=== PATIENT | male | born 1945 | race Caucasian/White ===

== ENCOUNTER 2021-10-02 10:40 | Inpatient (IN) | payer MEDICARE ==
[2021-10-02 11:45] LABS: #Eosinphils 0.2 10x3/uL (0.0-0.5); #Monocytes 1.3 10x3/uL (0.0-1.1); #Neutrophils 6.3 10x3/uL (1.5-8.4); %Basophils 0.4 % (0.0-2.0); %Eosinophils 2.3 % (0.0-6.0); %Lymphocytes 13.6 % (18.0-47.0); %Monocytes 14.2 % (0.0-10.0); Hemoglobin 12.3 g/dL (13.5-17.5); Mean Corpuscular Volume 96.7 fl (81.2-95.1); Mean Platelet Volume 10.1 fl (7.4-10.4); Platelet Count 233 10x3/uL (150-450); RBC Distribution Width 14.5 % (11.5-14.5); Red Blood Cell (RBC) Count 3.97 10x6/uL (4.32-5.72); White Blood Cell (WBC) Count 9.2 10x3/uL (3.5-10.5)
[2021-10-02 11:54] LABS: ALT (SGPT) 43 U/L (8-55); AST (SGOT) 48 U/L (5-34); Albumin 2.8 g/dL (3.4-4.8); Alkaline Phosphatase 75 U/L (40-110); Anion Gap 16 mmol/L (10-20); BUN (Urea Nitrogen) 73 mg/dL (8.4-25.7); Bilirubin, Total 1.2 mg/dL (0.2-1.2); Calc. Creatinine Clearance 0 mL/min (70-130); Calcium 8.8 mg/dL (7.8-10.44); Carbon Dioxide 20 mmol/L (23-31); Chloride 113 mmol/L (98-107); Globulin 3.1 g/dL (2.4-3.5); Glucose 110 mg/dL (83-110); Potassium 5.4 mmol/L (3.5-5.1); Protein, Total 5.9 g/dL (5.8-8.1); Sodium 144 mmol/L (136-145)
[2021-10-02 14:15] LABS: SARS-CoV-2 NAA Rapid Test Not Detected (NotDetected)
[2021-10-02] MEDS ORDERED: Acetaminophen 325 MG TAB PO PRN (15:05)
[2021-10-02 15:49] LABS: Potassium 5.2 mmol/L (3.5-5.1)
[2021-10-02 16:34] VITALS: BMI 38.7
[2021-10-02] MEDS ORDERED: Sodium Chloride 0.9% 500 ML IV SCH (17:30)
[2021-10-02 17:35] LABS: Bilirubin Neg (Negative); Blood, Urine Negative (Negative); Clarity Clear (Clear); Glucose, Urine (Dipstick) Normal (Negative); Ketone, Urine Negative (Negative); Leukocyte Negative (Negative); Nitrite Negative (Negative); Protein, Urine (Dipstick) Negative (Neg-Trace); Specific Gravity, Urine 1.015 (1.002-1.036); Urobilinogen Normal mg/dL (Less than 2)
[2021-10-02 17:49] LABS: Bacteria/HPF 1+ HPF (None Seen); Creatinine, Urine 167.28 mg/dL (63-166); RBC/HPF 0-3 HPF (0-3); Squamous Epithelial None Seen HPF (0-3); WBC/HPF 0-3 HPF (0-3)
[2021-10-02 18:31] LABS: Anion Gap 18 mmol/L (10-20); BUN (Urea Nitrogen) 76 mg/dL (8.4-25.7); Calc. Creatinine Clearance 35 mL/min (70-130); Calcium 8.8 mg/dL (7.8-10.44); Carbon Dioxide 19 mmol/L (23-31); Chloride 112 mmol/L (98-107); Glucose 126 mg/dL (83-110); Potassium 5.5 mmol/L (3.5-5.1); Sodium 143 mmol/L (136-145)
[2021-10-02] MEDS: Albumin 25% 25 GM/100 ML BOT IVPB SCH (20:59)
[2021-10-02] MEDS: LOKELMA 10 GM PACKET PO SCH (20:59)
[2021-10-02] MEDS: Fish Oil 1,000 MG CAP PO SCH (21:01)
[2021-10-02] MEDS: Atorvastatin Calcium 10 MG TAB PO SCH (21:01)
[2021-10-02] MEDS: Multivit, Therapeutic 1 TAB PO SCH (21:01)
[2021-10-02 21:15] LABS: Potassium 5.6 mmol/L (3.5-5.1)
[2021-10-03] MEDS: Albumin 25% 25 GM/100 ML BOT IVPB SCH ×3 (00:14→10:01)
[2021-10-03 00:46] LABS: Potassium 5.2 mmol/L (3.5-5.1)
[2021-10-03 07:20] LABS: #Eosinphils 0.2 10x3/uL (0.0-0.5); #Neutrophils 4.2 10x3/uL (1.5-8.4); %Basophils 0.6 % (0.0-2.0); %Eosinophils 3.3 % (0.0-6.0); %Lymphocytes 17.2 % (18.0-47.0); %Neutrophils 63.6 % (40.0-75.0); Hemoglobin 10.9 g/dL (13.5-17.5); Mean Corpuscular HGB CONC 33.1 g/dL (32.0-36.0); Mean Corpuscular Hemoglobin 31.4 pg (27.0-33.0); Mean Corpuscular Volume 94.8 fl (81.2-95.1); Mean Platelet Volume 10.1 fl (7.4-10.4); Platelet Count 166 10x3/uL (150-450); RBC Distribution Width 14.6 % (11.5-14.5); Red Blood Cell (RBC) Count 3.47 10x6/uL (4.32-5.72); White Blood Cell (WBC) Count 6.6 10x3/uL (3.5-10.5)
[2021-10-03 07:48] LABS: Anion Gap 13 mmol/L (10-20); BUN (Urea Nitrogen) 72 mg/dL (8.4-25.7); Calc. Creatinine Clearance 42 mL/min (70-130); Calcium 8.5 mg/dL (7.8-10.44); Carbon Dioxide 21 mmol/L (23-31); Chloride 114 mmol/L (98-107); Glucose 91 mg/dL (83-110); Sodium 143 mmol/L (136-145)
[2021-10-03 09:22] LABS: INR-International Normal Ratio 1.3; Prothrombin Time 14.1 sec (9.5-12.1)
[2021-10-03] MEDS ORDERED: Enoxaparin Sodium 30 MG/0.3 ML SYRINGE ONE (09:44)
[2021-10-03] MEDS ORDERED: Albumin 25% 100 ML ONE (09:46)
[2021-10-03] MEDS: Lisinopril 20 MG TAB PO SCH (10:02)
[2021-10-03] MEDS: Ferrous Gluconate 324 MG TAB PO SCH (10:02)
[2021-10-03] MEDS: Ascorbic Acid 500 mg Chewable Tablet PO SCH (10:02)
[2021-10-03] MEDS: Amlodipine 10 MG TAB PO SCH (10:02)
[2021-10-03] MEDS: Enoxaparin Sodium 30 MG/0.3 ML SYRINGE SC SCH (10:03)
[2021-10-03] MEDS: Fluticasone Propionate Nasal Spray 16 gm Bottle NASAL SCH (10:04)
[2021-10-03] MEDS: LOKELMA 10 GM PACKET PO SCH ×3 (10:07→21:18)
[2021-10-03 14:33] LABS: Potassium 4.5 mmol/L (3.5-5.1)
[2021-10-03] MEDS: Mometasone Furoate 220 MCG AER IH SCH (19:33)
[2021-10-03] MEDS: Atorvastatin Calcium 10 MG TAB PO SCH (21:18)
[2021-10-03] MEDS: Multivit, Therapeutic 1 TAB PO SCH (21:18)
[2021-10-03] MEDS: Fish Oil 1,000 MG CAP PO SCH (21:18)
[2021-10-04 04:39] LABS: Anion Gap 16 mmol/L (10-20); BUN (Urea Nitrogen) 62 mg/dL (8.4-25.7); Calc. Creatinine Clearance 51 mL/min (70-130); Calcium 8.5 mg/dL (7.8-10.44); Carbon Dioxide 18 mmol/L (23-31); Chloride 114 mmol/L (98-107); Glucose 90 mg/dL (83-110); Potassium 4.4 mmol/L (3.5-5.1); Sodium 144 mmol/L (136-145)
[2021-10-04 04:48] LABS: #Eosinphils 0.2 10x3/uL (0.0-0.5); #Neutrophils 4.4 10x3/uL (1.5-8.4); %Basophils 0.4 % (0.0-2.0); %Eosinophils 3.1 % (0.0-6.0); %Lymphocytes 18.1 % (18.0-47.0); %Monocytes 14.6 % (0.0-10.0); %Neutrophils 63.7 % (40.0-75.0); Hemoglobin 11.5 g/dL (13.5-17.5); Mean Corpuscular HGB CONC 33.3 g/dL (32.0-36.0); Mean Corpuscular Hemoglobin 31.6 pg (27.0-33.0); Mean Corpuscular Volume 94.8 fl (81.2-95.1); Mean Platelet Volume 10.4 fl (7.4-10.4); Platelet Count 173 10x3/uL (150-450); RBC Distribution Width 14.4 % (11.5-14.5); Red Blood Cell (RBC) Count 3.64 10x6/uL (4.32-5.72); White Blood Cell (WBC) Count 6.8 10x3/uL (3.5-10.5)
[2021-10-04] MEDS: Ascorbic Acid 500 mg Chewable Tablet PO SCH (08:29)
[2021-10-04] MEDS: Ferrous Gluconate 324 MG TAB PO SCH (08:29)
[2021-10-04] MEDS: Enoxaparin Sodium 30 MG/0.3 ML SYRINGE SC SCH (08:29)
[2021-10-04] MEDS: LOKELMA 10 GM PACKET PO SCH ×2 (08:30→15:30)
[2021-10-04] MEDS: Lisinopril 20 MG TAB PO SCH (08:30)
[2021-10-04] MEDS: Amlodipine 10 MG TAB PO SCH (08:30)
[2021-10-04] MEDS: Fluticasone Propionate Nasal Spray 16 gm Bottle NASAL SCH (08:33)
[2021-10-04] MEDS ORDERED: Octreotide Acetate 100 MCG/ML VIAL SLOW IVP SCH (10:00)
[2021-10-04] MEDS: Octreotide Acetate 50 MCG/ML AMP SLOW IVP SCH ×2 (10:33→18:20)
[2021-10-04] MEDS: Ondansetron ODT 4 MG TAB PO PRN (10:33)
[2021-10-04] MEDS ORDERED: Lidocaine 1% PF 5 ML VIAL ONE (11:48)
[2021-10-04] MEDS ORDERED: Sodium Bicarbonate 2.5 MEQ/5 ML VIAL ONE (11:49)
[2021-10-04] MEDS ORDERED: Albumin 25% 100 ML ONE (12:23)
[2021-10-04 13:30] LABS: BF Color Yellow; Body Fluid Source Ascites Body Fluid; Clarity Cloudy/Turbid (Clear); Tube # EDTA
[2021-10-04 14:26] LABS: BF Segmented Neutrophils 21 %; Cell Count Non Hematic 19 %; Lymphocytes 60 %
[2021-10-04] MEDS: Albumin 25% 25 GM/100 ML BOT IVPB SCH ×2 (14:26→20:50)
[2021-10-04] MEDS: Mometasone Furoate 220 MCG AER IH SCH (19:12)
[2021-10-04] MEDS: Multivit, Therapeutic 1 TAB PO SCH (20:50)
[2021-10-04] MEDS: Atorvastatin Calcium 10 MG TAB PO SCH (20:50)
[2021-10-04] MEDS: Fish Oil 1,000 MG CAP PO SCH (20:51)
[2021-10-05] MEDS: Ondansetron ODT 4 MG TAB PO PRN ×2 (00:39→09:42)
[2021-10-05] MEDS: Octreotide Acetate 50 MCG/ML AMP SLOW IVP SCH (01:28)
[2021-10-05] MEDS: Albumin 25% 25 GM/100 ML BOT IVPB SCH ×2 (02:15→09:16)
[2021-10-05 04:02] LABS: #Eosinphils 0.1 10x3/uL (0.0-0.5); #Monocytes 0.9 10x3/uL (0.0-1.1); #Neutrophils 6.7 10x3/uL (1.5-8.4); %Basophils 0.2 % (0.0-2.0); %Eosinophils 0.8 % (0.0-6.0); %Lymphocytes 11.4 % (18.0-47.0); %Monocytes 9.9 % (0.0-10.0); %Neutrophils 77.4 % (40.0-75.0); Hemoglobin 11.1 g/dL (13.5-17.5); Mean Corpuscular HGB CONC 32.6 g/dL (32.0-36.0); Mean Corpuscular Hemoglobin 31.1 pg (27.0-33.0); Mean Corpuscular Volume 95.2 fl (81.2-95.1); Mean Platelet Volume 10.2 fl (7.4-10.4); Platelet Count 150 10x3/uL (150-450); RBC Distribution Width 14.5 % (11.5-14.5); Red Blood Cell (RBC) Count 3.57 10x6/uL (4.32-5.72); White Blood Cell (WBC) Count 8.7 10x3/uL (3.5-10.5)
[2021-10-05 04:21] LABS: Anion Gap 14 mmol/L (10-20); BUN (Urea Nitrogen) 60 mg/dL (8.4-25.7); Calc. Creatinine Clearance 53 mL/min (70-130); Calcium 8.6 mg/dL (7.8-10.44); Carbon Dioxide 22 mmol/L (23-31); Chloride 115 mmol/L (98-107); Glucose 146 mg/dL (83-110); Potassium 5.2 mmol/L (3.5-5.1); Sodium 146 mmol/L (136-145)
[2021-10-05] MEDS: Ascorbic Acid 500 mg Chewable Tablet PO SCH (09:16)
[2021-10-05] MEDS: Ferrous Gluconate 324 MG TAB PO SCH (09:16)
[2021-10-05] MEDS: Enoxaparin Sodium 30 MG/0.3 ML SYRINGE SC SCH (09:19)
[2021-10-05] MEDS: Dextrose 5% in Water 1,000 ML IV SCH (09:24)
[2021-10-05] MEDS: Fluticasone Propionate Nasal Spray 16 gm Bottle NASAL SCH (09:32)
[2021-10-05] MEDS ORDERED: LOKELMA 10 GM PACKET PO SCH ×2 (11:00→15:00)
[2021-10-05] MEDS: Metoclopramide HCl 10 MG/2 ML VIAL IVP PRN (11:16)
[2021-10-05] MEDS: Octreotide Acetate 100 MCG/ML VIAL SLOW IVP SCH ×2 (11:35→20:47)
[2021-10-05] MEDS: LOKELMA 10 GM PACKET PO SCH ×2 (16:00→20:47)
[2021-10-05 16:52] LABS: Anion Gap 17 mmol/L (10-20); BUN (Urea Nitrogen) 64 mg/dL (8.4-25.7); Calc. Creatinine Clearance 47 mL/min (70-130); Calcium 8.7 mg/dL (7.8-10.44); Carbon Dioxide 21 mmol/L (23-31); Chloride 113 mmol/L (98-107); Glucose 149 mg/dL (83-110); Potassium 5.1 mmol/L (3.5-5.1); Sodium 146 mmol/L (136-145)
[2021-10-05] MEDS: Mometasone Furoate 220 MCG AER IH SCH (19:35)
[2021-10-05] MEDS: Fish Oil 1,000 MG CAP PO SCH (20:47)
[2021-10-05] MEDS: Multivit, Therapeutic 1 TAB PO SCH (20:47)
[2021-10-05] MEDS: Atorvastatin Calcium 10 MG TAB PO SCH (20:47)
[2021-10-06] MEDS ORDERED: Meclizine HCl 12.5 MG TAB PO SCH (02:30)
[2021-10-06] MEDS: Octreotide Acetate 100 MCG/ML VIAL SLOW IVP SCH ×4 (03:08→21:12)
[2021-10-06] MEDS: Ferrous Gluconate 324 MG TAB PO SCH (09:20)
[2021-10-06] MEDS: Ascorbic Acid 500 mg Chewable Tablet PO SCH (09:20)
[2021-10-06] MEDS: Fluticasone Propionate Nasal Spray 16 gm Bottle NASAL SCH (09:20)
[2021-10-06] MEDS: Dextrose 5% in Water 1,000 ML IV SCH ×2 (09:21→18:16)
[2021-10-06 09:22] LABS: #Eosinphils 0.1 10x3/uL (0.0-0.5); #Monocytes 1.4 10x3/uL (0.0-1.1); #Neutrophils 9.5 10x3/uL (1.5-8.4); %Basophils 0.2 % (0.0-2.0); %Lymphocytes 11.4 % (18.0-47.0); Hemoglobin 12.6 g/dL (13.5-17.5); Mean Corpuscular HGB CONC 33.6 g/dL (32.0-36.0); Mean Corpuscular Hemoglobin 31.5 pg (27.0-33.0); Mean Corpuscular Volume 93.8 fl (81.2-95.1); Mean Platelet Volume 10.2 fl (7.4-10.4); Platelet Count 181 10x3/uL (150-450); RBC Distribution Width 14.4 % (11.5-14.5); White Blood Cell (WBC) Count 12.5 10x3/uL (3.5-10.5)
[2021-10-06 09:36] LABS: Anion Gap 14 mmol/L (10-20); BUN (Urea Nitrogen) 61 mg/dL (8.4-25.7); Calc. Creatinine Clearance 50 mL/min (70-130); Calcium 8.7 mg/dL (7.8-10.44); Carbon Dioxide 23 mmol/L (23-31); Chloride 114 mmol/L (98-107); Glucose 133 mg/dL (83-110); Potassium 4.4 mmol/L (3.5-5.1); Sodium 147 mmol/L (136-145)
[2021-10-06] MEDS: Metoclopramide HCl 10 MG/2 ML VIAL IVP PRN (09:37)
[2021-10-06] MEDS: Ondansetron ODT 4 MG TAB PO PRN ×2 (10:48→21:22)
[2021-10-06] MEDS: Mometasone Furoate 220 MCG AER IH SCH (19:08)
[2021-10-06] MEDS: Fish Oil 1,000 MG CAP PO SCH (20:34)
[2021-10-06] MEDS: Atorvastatin Calcium 10 MG TAB PO SCH (20:34)
[2021-10-06] MEDS: Multivit, Therapeutic 1 TAB PO SCH (20:34)
[2021-10-06] MEDS: LOKELMA 10 GM PACKET PO SCH (20:35)
[2021-10-07] MEDS: Octreotide Acetate 100 MCG/ML VIAL SLOW IVP SCH ×3 (07:15→21:43)
[2021-10-07] MEDS: Fluticasone Propionate Nasal Spray 16 gm Bottle NASAL SCH (08:59)
[2021-10-07] MEDS: Ascorbic Acid 500 mg Chewable Tablet PO SCH (09:00)
[2021-10-07] MEDS: Ferrous Gluconate 324 MG TAB PO SCH (09:00)
[2021-10-07 12:06] LABS: Anion Gap 14 mmol/L (10-20); BUN (Urea Nitrogen) 60 mg/dL (8.4-25.7); Calc. Creatinine Clearance 47 mL/min (70-130); Calcium 8.9 mg/dL (7.8-10.44); Carbon Dioxide 24 mmol/L (23-31); Chloride 112 mmol/L (98-107); Glucose 154 mg/dL (83-110); Sodium 146 mmol/L (136-145)
[2021-10-07] MEDS: Dextrose 5% in Water 1,000 ML IV SCH ×2 (14:22→19:16)
[2021-10-07] MEDS: Ondansetron ODT 4 MG TAB PO PRN (14:42)
[2021-10-07] MEDS: Mometasone Furoate 220 MCG AER IH SCH (20:11)
[2021-10-07] MEDS: Multivit, Therapeutic 1 TAB PO SCH (21:08)
[2021-10-07] MEDS: Atorvastatin Calcium 10 MG TAB PO SCH (21:08)
[2021-10-07] MEDS: Fish Oil 1,000 MG CAP PO SCH (21:08)
[2021-10-07] MEDS: Rifaximin 550 MG TAB PO SCH (21:15)
[2021-10-07] MEDS: LOKELMA 10 GM PACKET PO SCH (21:43)
[2021-10-08] MEDS: Lactulose 10 GM/15 ML Oral Solution PR SCH ×6 (01:03→23:52)
[2021-10-08] MEDS: Octreotide Acetate 100 MCG/ML VIAL SLOW IVP SCH ×2 (06:33→17:30)
[2021-10-08 09:45] LABS: Anion Gap 17 mmol/L (10-20); BUN (Urea Nitrogen) 64 mg/dL (8.4-25.7); Calc. Creatinine Clearance 37 mL/min (70-130); Calcium 9.6 mg/dL (7.8-10.44); Carbon Dioxide 21 mmol/L (23-31); Chloride 113 mmol/L (98-107); Glucose 132 mg/dL (83-110); Potassium 3.6 mmol/L (3.5-5.1); Sodium 147 mmol/L (136-145)
[2021-10-08] MEDS: Dextrose 5% in Water 1,000 ML IV SCH ×4 (11:30→23:50)
[2021-10-08] MEDS: Ferrous Gluconate 324 MG TAB PO SCH (13:14)
[2021-10-08] MEDS: Ascorbic Acid 500 mg Chewable Tablet PO SCH (13:14)
[2021-10-08] MEDS: Fluticasone Propionate Nasal Spray 16 gm Bottle NASAL SCH (13:15)
[2021-10-08] MEDS: Rifaximin 550 MG TAB PO SCH ×2 (13:22→21:00)
[2021-10-08 16:50] LABS: ALT (SGPT) 46 U/L (8-55); AST (SGOT) 69 U/L (5-34); Albumin 3.4 g/dL (3.4-4.8); Alkaline Phosphatase 87 U/L (40-110); Anion Gap 16 mmol/L (10-20); BUN (Urea Nitrogen) 64 mg/dL (8.4-25.7); Bilirubin, Total 1.6 mg/dL (0.2-1.2); Calc. Creatinine Clearance 37 mL/min (70-130); Calcium 9.3 mg/dL (7.8-10.44); Carbon Dioxide 21 mmol/L (23-31); Chloride 113 mmol/L (98-107); Globulin 2.8 g/dL (2.4-3.5); Glucose 175 mg/dL (83-110); Potassium 3.5 mmol/L (3.5-5.1); Protein, Total 6.2 g/dL (5.8-8.1); Sodium 146 mmol/L (136-145)
[2021-10-08] MEDS: Mometasone Furoate 220 MCG AER IH SCH (19:53)
[2021-10-08] MEDS: Atorvastatin Calcium 10 MG TAB PO SCH (21:00)
[2021-10-08] MEDS: Fish Oil 1,000 MG CAP PO SCH (21:00)
[2021-10-08] MEDS: LOKELMA 10 GM PACKET PO SCH (21:00)
[2021-10-08] MEDS: Multivit, Therapeutic 1 TAB PO SCH (21:00)
[2021-10-09] MEDS: Octreotide Acetate 100 MCG/ML VIAL SLOW IVP SCH ×4 (00:45→22:58)
[2021-10-09] MEDS: Lactulose 10 GM/15 ML Oral Solution PR SCH ×6 (01:00→21:00)
[2021-10-09] MEDS: Dextrose 5% in Water 1,000 ML IV SCH ×3 (01:20→17:05)
[2021-10-09 05:24] LABS: #Eosinphils 0.1 10x3/uL (0.0-0.5); #Monocytes 1.9 10x3/uL (0.0-1.1); #Neutrophils 11.9 10x3/uL (1.5-8.4); %Basophils 0.2 % (0.0-2.0); %Eosinophils 0.8 % (0.0-6.0); %Lymphocytes 12.7 % (18.0-47.0); %Monocytes 11.9 % (0.0-10.0); %Neutrophils 73.4 % (40.0-75.0); Hemoglobin 13.6 g/dL (13.5-17.5); Mean Corpuscular HGB CONC 33.6 g/dL (32.0-36.0); Mean Corpuscular Hemoglobin 31.1 pg (27.0-33.0); Mean Corpuscular Volume 92.7 fl (81.2-95.1); Mean Platelet Volume 10.6 fl (7.4-10.4); Platelet Count 182 10x3/uL (150-450); RBC Distribution Width 14.6 % (11.5-14.5); Red Blood Cell (RBC) Count 4.37 10x6/uL (4.32-5.72); White Blood Cell (WBC) Count 16.2 10x3/uL (3.5-10.5)
[2021-10-09 05:30] LABS: ALT (SGPT) 48 U/L (8-55); AST (SGOT) 70 U/L (5-34); Albumin 3.3 g/dL (3.4-4.8); Alkaline Phosphatase 91 U/L (40-110); Anion Gap 13 mmol/L (10-20); BUN (Urea Nitrogen) 63 mg/dL (8.4-25.7); Bilirubin, Total 1.5 mg/dL (0.2-1.2); Calc. Creatinine Clearance 42 mL/min (70-130); Carbon Dioxide 24 mmol/L (23-31); Chloride 114 mmol/L (98-107); Globulin 2.8 g/dL (2.4-3.5); Glucose 144 mg/dL (83-110); Magnesium 2.3 mg/dL (1.6-2.6); Potassium 3.2 mmol/L (3.5-5.1); Protein, Total 6.1 g/dL (5.8-8.1); Sodium 148 mmol/L (136-145)
[2021-10-09] MEDS: Fluticasone Propionate Nasal Spray 16 gm Bottle NASAL SCH (09:56)
[2021-10-09] MEDS: Ascorbic Acid 500 mg Chewable Tablet PO SCH (09:56)
[2021-10-09] MEDS: Ferrous Gluconate 324 MG TAB PO SCH (09:56)
[2021-10-09] MEDS: Rifaximin 550 MG TAB PO SCH ×2 (09:57→21:00)
[2021-10-09] MEDS ORDERED: VANCOMYCIN 1.75 GM/350 ML BAG 1.75 GM in Premix Bag 1 BAG IVPB SCH (15:00)
[2021-10-09] MEDS ORDERED: Vancomycin HCl 500 MG in Premix Bag 1 BAG IVPB PRN (15:01)
[2021-10-09] MEDS: Cefepime 2 GM in Sodium Chloride 0.9% 100 ML IVPB SCH (17:08)
[2021-10-09] MEDS: Mometasone Furoate 220 MCG AER IH SCH (18:45)
[2021-10-09] MEDS: Fish Oil 1,000 MG CAP PO SCH (21:00)
[2021-10-09] MEDS: Multivit, Therapeutic 1 TAB PO SCH (21:00)
[2021-10-09] MEDS: Atorvastatin Calcium 10 MG TAB PO SCH (21:00)
[2021-10-09] MEDS: LOKELMA 10 GM PACKET PO SCH (21:00)
[2021-10-10] MEDS: Lactulose 10 GM/15 ML Oral Solution PR SCH ×5 (03:30→17:45)
[2021-10-10] MEDS: Octreotide Acetate 100 MCG/ML VIAL SLOW IVP SCH ×3 (06:22→23:00)
[2021-10-10] MEDS: Cefepime 2 GM in Sodium Chloride 0.9% 100 ML IVPB SCH ×2 (06:25→14:12)
[2021-10-10] MEDS: Dextrose 5% in Water 1,000 ML IV SCH (06:31)
[2021-10-10 06:50] LABS: INR-International Normal Ratio 1.3; PTT 30.3 sec (22.0-33.0); Prothrombin Time 14.7 sec (9.5-12.1)
[2021-10-10] MEDS ORDERED: Ondansetron PF 4 MG/2 ML Vial IVP PRN (06:52)
[2021-10-10] MEDS ORDERED: Hydrocerin (Eucerin) Cream 120 gm Jar TOP PRN (06:52)
[2021-10-10] MEDS ORDERED: hydrALAZINE 20 MG/ML VIAL SLOW IVP PRN (06:52)
[2021-10-10] MEDS ORDERED: Artificial Tear Sol 15 ML BOT EA EYE PRN (06:52)
[2021-10-10] MEDS ORDERED: Cepastat Lozenges 1 LOZ PO PRN (06:52)
[2021-10-10] MEDS ORDERED: Sodium Chloride 0.65% Nasal 44 ML BOT EA NARE PRN (06:52)
[2021-10-10 07:01] LABS: ALT (SGPT) 53 U/L (8-55); AST (SGOT) 81 U/L (5-34); Alkaline Phosphatase 86 U/L (40-110); Anion Gap 16 mmol/L (10-20); BUN (Urea Nitrogen) 52 mg/dL (8.4-25.7); Bilirubin, Total 1.8 mg/dL (0.2-1.2); Calc. Creatinine Clearance 63 mL/min (70-130); Calcium 8.7 mg/dL (7.8-10.44); Carbon Dioxide 19 mmol/L (23-31); Chloride 114 mmol/L (98-107); Globulin 3.2 g/dL (2.4-3.5); Glucose 111 mg/dL (83-110); Magnesium 2.3 mg/dL (1.6-2.6); Potassium 3.6 mmol/L (3.5-5.1); Protein, Total 6.2 g/dL (5.8-8.1); Sodium 145 mmol/L (136-145)
[2021-10-10] MEDS: Ferrous Gluconate 324 MG TAB PO SCH (10:38)
[2021-10-10] MEDS: Fluticasone Propionate Nasal Spray 16 gm Bottle NASAL SCH (10:38)
[2021-10-10] MEDS: Ascorbic Acid 500 mg Chewable Tablet PO SCH (10:38)
[2021-10-10] MEDS: Pantoprazole 40 MG VIAL IVP SCH (10:40)
[2021-10-10] MEDS: Rifaximin 550 MG TAB PO SCH (10:40)
[2021-10-10] MEDS: Mometasone Furoate 220 MCG AER IH SCH (19:00)
[2021-10-10 19:30] LABS: Vancomycin, Random 7.7 ug/mL (See Comment)
[2021-10-10] MEDS ORDERED: Dextrose 5% in Water 1,000 ML IV SCH (20:45)
[2021-10-10] MEDS ORDERED: VANCOMYCIN 1.75 GM/350 ML BAG 1.75 GM in Premix Bag 1 BAG IVPB SCH (21:00)
[2021-10-10 21:31] LABS: SARS-CoV-2 PCR by NAA Not Detected (NotDetected)
[2021-10-10] MEDS: Atorvastatin Calcium 10 MG TAB PO SCH (23:02)
[2021-10-10] MEDS: Multivit, Therapeutic 1 TAB PO SCH (23:02)
[2021-10-10] MEDS: Albumin 25% 25 GM/100 ML BOT IVPB SCH (23:02)
[2021-10-10] MEDS: Fish Oil 1,000 MG CAP PO SCH (23:03)
[2021-10-10] MEDS: LOKELMA 10 GM PACKET PO SCH (23:03)
[2021-10-11] MEDS ORDERED: Rifaximin 550 MG TAB PO SCH (01:45)
[2021-10-11] MEDS: Rifaximin 550 MG TAB PO SCH ×3 (01:50→20:15)
[2021-10-11] MEDS: Albumin 25% 25 GM/100 ML BOT IVPB SCH ×4 (03:11→20:00)
[2021-10-11] MEDS: Cefepime 2 GM in Sodium Chloride 0.9% 100 ML IVPB SCH ×2 (03:13→16:11)
[2021-10-11 04:52] LABS: #Eosinphils 0.3 10x3/uL (0.0-0.5); #Monocytes 1.4 10x3/uL (0.0-1.1); #Neutrophils 8.6 10x3/uL (1.5-8.4); %Basophils 0.3 % (0.0-2.0); %Eosinophils 2.3 % (0.0-6.0); %Lymphocytes 13.8 % (18.0-47.0); %Monocytes 11.2 % (0.0-10.0); %Neutrophils 71.4 % (40.0-75.0); Hemoglobin 13.8 g/dL (13.5-17.5); Mean Corpuscular HGB CONC 33.2 g/dL (32.0-36.0); Mean Corpuscular Hemoglobin 31.2 pg (27.0-33.0); Mean Corpuscular Volume 94.1 fl (81.2-95.1); Mean Platelet Volume 10.6 fl (7.4-10.4); Platelet Count 145 10x3/uL (150-450); RBC Distribution Width 14.2 % (11.5-14.5); Red Blood Cell (RBC) Count 4.42 10x6/uL (4.32-5.72); White Blood Cell (WBC) Count 12.1 10x3/uL (3.5-10.5)
[2021-10-11 04:54] LABS: ALT (SGPT) 62 U/L (8-55); AST (SGOT) 92 U/L (5-34); Albumin 3.4 g/dL (3.4-4.8); Alkaline Phosphatase 94 U/L (40-110); Anion Gap 13 mmol/L (10-20); BUN (Urea Nitrogen) 49 mg/dL (8.4-25.7); Bilirubin, Total 2.3 mg/dL (0.2-1.2); Calc. Creatinine Clearance 72 mL/min (70-130); Carbon Dioxide 23 mmol/L (23-31); Chloride 114 mmol/L (98-107); Glucose 116 mg/dL (83-110); Magnesium 2.5 mg/dL (1.6-2.6); Phosphorus 2.8 mg/dL (2.3-4.7); Potassium 3.1 mmol/L (3.5-5.1); Protein, Total 6.4 g/dL (5.8-8.1); Sodium 147 mmol/L (136-145)
[2021-10-11 04:58] LABS: INR-International Normal Ratio 1.3; Prothrombin Time 14.6 sec (9.5-12.1)
[2021-10-11] MEDS ORDERED: Dextrose 5% in Water 1,000 ML IV SCH (06:43)
[2021-10-11] MEDS: Octreotide Acetate 100 MCG/ML VIAL SLOW IVP SCH ×3 (07:56→20:15)
[2021-10-11] MEDS: Pantoprazole 40 MG VIAL IVP SCH (09:20)
[2021-10-11] MEDS: Fluticasone Propionate Nasal Spray 16 gm Bottle NASAL SCH (09:20)
[2021-10-11] MEDS: Ascorbic Acid 500 mg Chewable Tablet PO SCH (09:20)
[2021-10-11] MEDS ORDERED: Potassium Chloride 20 MEQ TAB PER TUBE SCH (09:30)
[2021-10-11] MEDS: Dextrose 5% in Water 1,000 ML IV SCH ×2 (09:50→20:16)
[2021-10-11] MEDS ORDERED: VANCOMYCIN 1.25 GM/250 ML BAG 1.25 GM in Premix Bag 1 BAG IVPB SCH (16:00)
[2021-10-11] MEDS: Mometasone Furoate 220 MCG AER IH SCH (19:45)
[2021-10-11] MEDS: Fish Oil 1,000 MG CAP PO SCH (20:06)
[2021-10-11] MEDS: Atorvastatin Calcium 10 MG TAB PO SCH (20:15)
[2021-10-11] MEDS: Multivit, Therapeutic 1 TAB PO SCH (20:15)
[2021-10-12] MEDS: Cefepime 2 GM in Sodium Chloride 0.9% 100 ML IVPB SCH ×2 (03:14→14:50)
[2021-10-12] MEDS: Dextrose 5% in Water 1,000 ML IV SCH ×2 (03:17→13:47)
[2021-10-12] MEDS: Octreotide Acetate 100 MCG/ML VIAL SLOW IVP SCH ×3 (04:29→20:31)
[2021-10-12 06:06] LABS: ALT (SGPT) 65 U/L (8-55); AST (SGOT) 99 U/L (5-34); Albumin 3.7 g/dL (3.4-4.8); Alkaline Phosphatase 90 U/L (40-110); Anion Gap 12 mmol/L (10-20); BUN (Urea Nitrogen) 42 mg/dL (8.4-25.7); Calc. Creatinine Clearance 84 mL/min (70-130); Calcium 8.8 mg/dL (7.8-10.44); Carbon Dioxide 21 mmol/L (23-31); Chloride 116 mmol/L (98-107); Globulin 2.3 g/dL (2.4-3.5); Glucose 128 mg/dL (83-110); Sodium 146 mmol/L (136-145)
[2021-10-12 06:09] LABS: Potassium 2.6 mmol/L (3.5-5.1)
[2021-10-12 06:15] LABS: #Basophils 0.1 10x3/uL (0.0-0.2); #Eosinphils 0.5 10x3/uL (0.0-0.5); #Monocytes 1.4 10x3/uL (0.0-1.1); #Neutrophils 8.1 10x3/uL (1.5-8.4); %Basophils 0.6 % (0.0-2.0); %Eosinophils 3.9 % (0.0-6.0); %Lymphocytes 15.1 % (18.0-47.0); %Monocytes 11.9 % (0.0-10.0); %Neutrophils 67.6 % (40.0-75.0); Hemoglobin 12.7 g/dL (13.5-17.5); Mean Corpuscular HGB CONC 32.6 g/dL (32.0-36.0); Mean Corpuscular Hemoglobin 30.8 pg (27.0-33.0); Mean Corpuscular Volume 94.4 fl (81.2-95.1); Mean Platelet Volume 10.5 fl (7.4-10.4); Platelet Count 137 10x3/uL (150-450); RBC Distribution Width 14.5 % (11.5-14.5); Red Blood Cell (RBC) Count 4.13 10x6/uL (4.32-5.72); White Blood Cell (WBC) Count 11.9 10x3/uL (3.5-10.5)
[2021-10-12] MEDS ORDERED: Potassium Chloride 20 MEQ TAB PER TUBE SCH (06:15)
[2021-10-12] MEDS: Potassium Chloride 20 MEQ in Premix Bag 1 BAG IVPB SCH ×3 (06:38→13:45)
[2021-10-12] MEDS: Rifaximin 550 MG TAB PO SCH ×2 (09:30→20:34)
[2021-10-12] MEDS: Albumin 25% 25 GM/100 ML BOT IVPB SCH ×3 (09:45→20:24)
[2021-10-12] MEDS: Fluticasone Propionate Nasal Spray 16 gm Bottle NASAL SCH (09:47)
[2021-10-12] MEDS: Pantoprazole 40 MG GRANULES PACKET PO SCH (09:47)
[2021-10-12] MEDS: Ascorbic Acid 500 mg Chewable Tablet PO SCH (09:47)
[2021-10-12] MEDS ORDERED: Vancomycin 1.5 GRAM/300 ML BAG 1.5 GM in Premix Bag 1 BAG IVPB SCH (10:00)
[2021-10-12] MEDS ORDERED: Electrolyte Replacement Protocol 1 EACH FS PRN (17:30)
[2021-10-12] MEDS: Mometasone Furoate 220 MCG AER IH SCH (19:30)
[2021-10-12] MEDS: Atorvastatin Calcium 10 MG TAB PO SCH (20:24)
[2021-10-12] MEDS: Fish Oil 1,000 MG CAP PO SCH (20:25)
[2021-10-12] MEDS: Multivit, Therapeutic 1 TAB PO SCH (20:34)
[2021-10-12] MEDS ORDERED: Albuterol Sulfate 2.5 mg/3 ml Neb NEB PRN (20:58)
[2021-10-12] MEDS ORDERED: Furosemide 20 MG/2 ML VIAL SLOW IVP SCH (21:00)
[2021-10-12] MEDS ORDERED: Potassium Chloride 20 MEQ in Premix Bag 1 BAG IVPB SCH (21:00)
[2021-10-13 05:53] LABS: #Basophils 0.1 10x3/uL (0.0-0.2); #Eosinphils 0.4 10x3/uL (0.0-0.5); #Monocytes 1.6 10x3/uL (0.0-1.1); #Neutrophils 9.4 10x3/uL (1.5-8.4); %Basophils 0.5 % (0.0-2.0); %Eosinophils 3.1 % (0.0-6.0); %Lymphocytes 9.3 % (18.0-47.0); %Monocytes 12.4 % (0.0-10.0); %Neutrophils 73.5 % (40.0-75.0); Mean Corpuscular HGB CONC 34.3 g/dL (32.0-36.0); Mean Corpuscular Hemoglobin 31.5 pg (27.0-33.0); Mean Corpuscular Volume 91.8 fl (81.2-95.1); Mean Platelet Volume 10.9 fl (7.4-10.4); Platelet Count 117 10x3/uL (150-450); RBC Distribution Width 14.7 % (11.5-14.5); Red Blood Cell (RBC) Count 4.13 10x6/uL (4.32-5.72); White Blood Cell (WBC) Count 12.8 10x3/uL (3.5-10.5)
[2021-10-13] MEDS: Octreotide Acetate 100 MCG/ML VIAL SLOW IVP SCH ×2 (06:13→14:12)
[2021-10-13 07:17] LABS: ALT (SGPT) 75 U/L (8-55); AST (SGOT) 102 U/L (5-34); Albumin 4.3 g/dL (3.4-4.8); Alkaline Phosphatase 128 U/L (40-110); Anion Gap 15 mmol/L (10-20); BUN (Urea Nitrogen) 35 mg/dL (8.4-25.7); Bilirubin, Total 2.1 mg/dL (0.2-1.2); Calc. Creatinine Clearance 87 mL/min (70-130); Calcium 9.3 mg/dL (7.8-10.44); Carbon Dioxide 18 mmol/L (23-31); Chloride 119 mmol/L (98-107); Globulin 2.5 g/dL (2.4-3.5); Glucose 102 mg/dL (83-110); Magnesium 2.5 mg/dL (1.6-2.6); Potassium 3.4 mmol/L (3.5-5.1); Protein, Total 6.8 g/dL (5.8-8.1); Sodium 149 mmol/L (136-145)
[2021-10-13] MEDS ORDERED: Potassium Bicarbonate/Cit Ac 20 MEQ TAB PO SCH (08:00)
[2021-10-13] MEDS: Albumin 25% 25 GM/100 ML BOT IVPB SCH (09:37)
[2021-10-13] MEDS: PHOS-NAK 1 PKT PACK PO SCH ×2 (10:58→12:23)
[2021-10-13] MEDS: Pantoprazole 40 MG GRANULES PACKET PO SCH (10:59)
[2021-10-13] MEDS: Ascorbic Acid 500 mg Chewable Tablet PO SCH (10:59)
[2021-10-13] MEDS: Fluticasone Propionate Nasal Spray 16 gm Bottle NASAL SCH (10:59)
[2021-10-13] MEDS: Rifaximin 550 MG TAB PO SCH ×2 (11:03→21:17)
[2021-10-13] MEDS: Albuterol Sulfate 1.25 MG/3 ML NEB NEB PRN ×2 (14:42→19:40)
[2021-10-13] MEDS: Mometasone Furoate 220 MCG AER IH SCH (19:59)
[2021-10-13] MEDS: Sodium Chloride 0.9% 1,000 ML IV SCH (20:57)
[2021-10-13] MEDS: Fish Oil 1,000 MG CAP PO SCH (21:17)
[2021-10-13] MEDS: Multivit, Therapeutic 1 TAB PO SCH (21:17)
[2021-10-13] MEDS: Atorvastatin Calcium 10 MG TAB PO SCH (21:17)
[2021-10-14 00:52] LABS: Sodium 146 mmol/L (136-145)
[2021-10-14] MEDS: Pantoprazole 40 MG GRANULES PACKET PO SCH (08:29)
[2021-10-14] MEDS: Fluticasone Propionate Nasal Spray 16 gm Bottle NASAL SCH (08:29)
[2021-10-14] MEDS: Rifaximin 550 MG TAB PO SCH ×2 (08:29→21:20)
[2021-10-14 08:44] LABS: #Basophils 0.1 10x3/uL (0.0-0.2); #Eosinphils 0.4 10x3/uL (0.0-0.5); #Monocytes 1.4 10x3/uL (0.0-1.1); #Neutrophils 8.4 10x3/uL (1.5-8.4); %Basophils 0.6 % (0.0-2.0); %Eosinophils 3.2 % (0.0-6.0); %Lymphocytes 15.8 % (18.0-47.0); %Monocytes 11.6 % (0.0-10.0); %Neutrophils 68.2 % (40.0-75.0); Hemoglobin 13.2 g/dL (13.5-17.5); Mean Corpuscular HGB CONC 31.1 g/dL (32.0-36.0); Mean Corpuscular Hemoglobin 31.4 pg (27.0-33.0); Mean Corpuscular Volume 101.2 fl (81.2-95.1); Mean Platelet Volume 11.2 fl (7.4-10.4); Platelet Count 105 10x3/uL (150-450); RBC Distribution Width 15.5 % (11.5-14.5); White Blood Cell (WBC) Count 12.3 10x3/uL (3.5-10.5)
[2021-10-14 09:30] LABS: Anisocytosis SLIGHT = 6-15 cells (100X) (0-5/hpf); Platelet Morphology Comment Appears Decreased; Poikilocytosis SLIGHT = 6-15 cells (100X) (0-5/hpf)
[2021-10-14 09:31] LABS: Ovalocytes SLIGHT = 2-5 cells (100X) (0-1/hpf)
[2021-10-14 11:16] LABS: Phosphorus 2.3 mg/dL (2.3-4.7)
[2021-10-14 11:19] LABS: ALT (SGPT) 65 U/L (8-55); AST (SGOT) 80 U/L (5-34); Albumin 3.7 g/dL (3.4-4.8); Alkaline Phosphatase 93 U/L (40-110); Anion Gap 12 mmol/L (10-20); BUN (Urea Nitrogen) 32 mg/dL (8.4-25.7); Bilirubin, Total 2.6 mg/dL (0.2-1.2); Calc. Creatinine Clearance 100 mL/min (70-130); Calcium 8.9 mg/dL (7.8-10.44); Carbon Dioxide 19 mmol/L (23-31); Chloride 115 mmol/L (98-107); Globulin 2.5 g/dL (2.4-3.5); Glucose 135 mg/dL (83-110); Potassium 3.4 mmol/L (3.5-5.1); Protein, Total 6.2 g/dL (5.8-8.1); Sodium 143 mmol/L (136-145)
[2021-10-14] MEDS: Sodium Chloride 0.9% 1,000 ML IV SCH (14:17)
[2021-10-14] MEDS: Nystatin 500,000 UNITS/5 ML UDCUP SSW SCH ×2 (16:53→21:20)
[2021-10-14] MEDS: Potassium Chloride 20 MEQ in Premix Bag 1 BAG IVPB SCH ×2 (16:53→21:00)
[2021-10-14] MEDS: Mometasone Furoate 220 MCG AER IH SCH (19:40)
[2021-10-14] MEDS: Atorvastatin Calcium 10 MG TAB PO SCH (21:19)
[2021-10-14] MEDS: Multivit, Therapeutic 1 TAB PO SCH (21:20)
[2021-10-15 04:39] LABS: ALT (SGPT) 91 U/L (8-55); AST (SGOT) 132 U/L (5-34); Albumin 3.6 g/dL (3.4-4.8); Alkaline Phosphatase 120 U/L (40-110); Anion Gap 14 mmol/L (10-20); BUN (Urea Nitrogen) 34 mg/dL (8.4-25.7); Calc. Creatinine Clearance 95 mL/min (70-130); Calcium 8.6 mg/dL (7.8-10.44); Carbon Dioxide 18 mmol/L (23-31); Chloride 113 mmol/L (98-107); Globulin 2.9 g/dL (2.4-3.5); Glucose 102 mg/dL (83-110); Potassium 4.6 mmol/L (3.5-5.1); Protein, Total 6.5 g/dL (5.8-8.1); Sodium 140 mmol/L (136-145)
[2021-10-15] MEDS: Fish Oil 1,000 MG CAP PO SCH ×2 (06:44→21:13)
[2021-10-15] MEDS: Pantoprazole 40 MG GRANULES PACKET PO SCH (13:07)
[2021-10-15] MEDS: Nystatin 500,000 UNITS/5 ML UDCUP SSW SCH ×4 (13:07→21:06)
[2021-10-15] MEDS: Fluticasone Propionate Nasal Spray 16 gm Bottle NASAL SCH (13:07)
[2021-10-15] MEDS: Rifaximin 550 MG TAB PO SCH ×2 (13:07→21:06)
[2021-10-15] MEDS: Sodium Chloride 0.9% 1,000 ML IV SCH (14:58)
[2021-10-15] MEDS: Mometasone Furoate 220 MCG AER IH SCH (19:20)
[2021-10-15] MEDS: Atorvastatin Calcium 10 MG TAB PO SCH (21:06)
[2021-10-15] MEDS: Multivit, Therapeutic 1 TAB PO SCH (21:06)
[2021-10-16 04:55] LABS: ALT (SGPT) 94 U/L (8-55); AST (SGOT) 142 U/L (5-34); Albumin 3.4 g/dL (3.4-4.8); Alkaline Phosphatase 139 U/L (40-110); Anion Gap 13 mmol/L (10-20); BUN (Urea Nitrogen) 35 mg/dL (8.4-25.7); Bilirubin, Total 1.5 mg/dL (0.2-1.2); Calc. Creatinine Clearance 97 mL/min (70-130); Calcium 8.8 mg/dL (7.8-10.44); Carbon Dioxide 18 mmol/L (23-31); Chloride 114 mmol/L (98-107); Globulin 2.9 g/dL (2.4-3.5); Glucose 115 mg/dL (83-110); Potassium 4.4 mmol/L (3.5-5.1); Protein, Total 6.3 g/dL (5.8-8.1); Sodium 141 mmol/L (136-145)
[2021-10-16] MEDS ORDERED: Lidocaine 1% PF 5 ML VIAL ONE (09:03)
[2021-10-16] MEDS ORDERED: Sodium Bicarbonate 2.5 MEQ/5 ML VIAL ONE (09:03)
[2021-10-16] MEDS: Pantoprazole 40 MG GRANULES PACKET PO SCH (10:52)
[2021-10-16] MEDS: Nystatin 500,000 UNITS/5 ML UDCUP SSW SCH ×4 (10:52→20:45)
[2021-10-16] MEDS: Fluticasone Propionate Nasal Spray 16 gm Bottle NASAL SCH (10:52)
[2021-10-16] MEDS: Rifaximin 550 MG TAB PO SCH ×2 (10:52→22:17)
[2021-10-16] MEDS: Mometasone Furoate 220 MCG AER IH SCH (18:40)
[2021-10-16] MEDS: Atorvastatin Calcium 10 MG TAB PO SCH (20:45)
[2021-10-16] MEDS: Fish Oil 1,000 MG CAP PO SCH (20:45)
[2021-10-16] MEDS: Multivit, Therapeutic 1 TAB PO SCH (20:45)
[2021-10-17 05:38] LABS: ALT (SGPT) 113 U/L (8-55); AST (SGOT) 164 U/L (5-34); Albumin 3.2 g/dL (3.4-4.8); Alkaline Phosphatase 151 U/L (40-110); Anion Gap 13 mmol/L (10-20); BUN (Urea Nitrogen) 35 mg/dL (8.4-25.7); Bilirubin, Total 1.7 mg/dL (0.2-1.2); Calc. Creatinine Clearance 104 mL/min (70-130); Calcium 8.7 mg/dL (7.8-10.44); Carbon Dioxide 20 mmol/L (23-31); Chloride 112 mmol/L (98-107); Globulin 2.8 g/dL (2.4-3.5); Glucose 144 mg/dL (83-110); Potassium 3.9 mmol/L (3.5-5.1); Sodium 141 mmol/L (136-145)
[2021-10-17] MEDS: Rifaximin 550 MG TAB PO SCH (10:31)
[2021-10-17] MEDS: Nystatin 500,000 UNITS/5 ML UDCUP SSW SCH ×2 (10:31→13:35)
[2021-10-17] MEDS: Fluticasone Propionate Nasal Spray 16 gm Bottle NASAL SCH (10:38)
[2021-10-17] MEDS: Pantoprazole 40 MG GRANULES PACKET PO SCH (10:43)
[2021-10-17 11:56] LABS: INR-International Normal Ratio 1.2; PTT 29.1 sec (22.0-33.0); Prothrombin Time 13.2 sec (9.5-12.1)
[2021-10-17 12:31] LABS: Bilirubin Neg (Negative); Blood, Urine Negative (Negative); Clarity Clear (Clear); Glucose, Urine (Dipstick) Normal (Negative); Ketone, Urine Negative (Negative); Leukocyte Negative (Negative); Nitrite Negative (Negative); Protein, Urine (Dipstick) 15 mg/dl (Neg-Trace); Specific Gravity, Urine 1.015 (1.002-1.036); Urobilinogen Normal mg/dL (Less than 2)
[2021-10-17 12:47] LABS: Legionella Urinary Ag Negative (Negative); Strep pneumo Urine Ag NEGATIVE (NEGATIVE)
[2021-10-17 12:54] LABS: Bacteria/HPF Rare-Few HPF (None Seen); RBC/HPF 0-3 HPF (0-3); Squamous Epithelial 0-3 HPF (0-3); WBC/HPF 0-3 HPF (0-3)
[2021-10-17 14:26] VITALS: TEMP 98.9
[2021-10-17 15:44] VITALS: BP 134/63
== END 2021-10-17 16:20 | disposition home or self-care (01) | DRG 682 ==
LOC: CSHERS 10:40 → SUATTDRO 10:40 → CSHTELE 15:22
PROVIDERS: ADMIT Hospitalist; ATTEND Family Medicine
PROC: 0W9G30Z Drainage of Peritoneal Cavity with Drainage Device, Percutaneous Approach (ICD-10-PCS; principal; 2021-10-04)
PROC: 0W9G3ZZ Drainage of Peritoneal Cavity, Percutaneous Approach (ICD-10-PCS; 2021-10-16)
DX: N17.9 Acute kidney failure, unspecified (principal); K76.7 Hepatorenal syndrome; K72.00 Acute and subacute hepatic failure without coma; R18.8 Other ascites; E87.2 Acidosis; E87.0 Hyperosmolality and hypernatremia; E87.1 Hypo-osmolality and hyponatremia; K74.60 Unspecified cirrhosis of liver; N18.4 Chronic kidney disease, stage 4 (severe); Z20.822 Contact with and (suspected) exposure to COVID-19; E87.5 Hyperkalemia; E78.5 Hyperlipidemia, unspecified; N20.0 Calculus of kidney; K21.9 Gastro-esophageal reflux disease without esophagitis; D50.9 Iron deficiency anemia, unspecified; I12.9 Hypertensive chronic kidney disease with stage 1 through stage 4 chronic kidney disease, or unspecified chronic kidney disease; E66.9 Obesity, unspecified; J45.909 Unspecified asthma, uncomplicated; K75.81 Nonalcoholic steatohepatitis (NASH); E86.0 Dehydration; E87.6 Hypokalemia; D69.6 Thrombocytopenia, unspecified; D72.829 Elevated white blood cell count, unspecified; Z79.899 Other long term (current) drug therapy; Z90.49 Acquired absence of other specified parts of digestive tract; Z98.890 Other specified postprocedural states
CPT/HCPCS: 36415; 36416; 49083; 70450; 71045; 74018; 74022; 74176; 74183; 80048; 80053; 80202; 81001; 82042; 82140; 82570; 82945; 83735; 84100; 84145; 84156; 84157; 84300; 85025; 85610; 85730; 87040; 87070; 87086; 87205; 87449; 87899; 89051; 93005; 93010; 94640; 94760; C9113; J0692; J1650; J1940; J2354; J2765; J3370; J3480; J3490; J7030; J7050; J7070; P9047; Q0162; U0002; U0003; U0005

== ENCOUNTER → 2021-10-02 | Day surgery (SDC) | payer MEDICARE ==
[~2021-10-02] MED LIST: Lidocaine 1% PF 5 ML VIAL ONE; Sodium Bicarbonate 2.5 MEQ/5 ML VIAL ONE
[2021-10-02 09:47] VITALS: BP 118/52; TEMP 97.7
== END ==
LOC: CSHULT 08:57
PROVIDERS: ATTEND Physician Assistant Medical
DX: R18.8 Other ascites (principal); K74.60 Unspecified cirrhosis of liver; I10 Essential (primary) hypertension; E78.00 Pure hypercholesterolemia, unspecified; Z79.899 Other long term (current) drug therapy
CPT/HCPCS: 49083

== ENCOUNTER 2021-10-31 10:23 | Day surgery (SDC) | payer MEDICARE ==
[2021-10-31] MEDS ORDERED: Lidocaine 1% PF 5 ML VIAL ONE (10:46)
[2021-10-31] MEDS ORDERED: Sodium Bicarbonate 2.5 MEQ/5 ML VIAL ONE (10:46)
[2021-10-31] MEDS ORDERED: Albumin 25% 200 ML ONE (10:46)
[2021-10-31 11:36] LABS: #Eosinphils 0.1 10x3/uL (0.0-0.5); #Monocytes 0.8 10x3/uL (0.0-1.1); #Neutrophils 3.3 10x3/uL (1.5-8.4); %Basophils 0.6 % (0.0-2.0); %Eosinophils 2.4 % (0.0-6.0); %Lymphocytes 20.6 % (18.0-47.0); %Monocytes 14.3 % (0.0-10.0); %Neutrophils 61.7 % (40.0-75.0); Hemoglobin 11.9 g/dL (13.5-17.5); Mean Corpuscular HGB CONC 32.1 g/dL (32.0-36.0); Mean Corpuscular Hemoglobin 31.2 pg (27.0-33.0); Mean Corpuscular Volume 97.1 fl (81.2-95.1); Mean Platelet Volume 10.2 fl (7.4-10.4); Platelet Count 164 10x3/uL (150-450); RBC Distribution Width 16.1 % (11.5-14.5); Red Blood Cell (RBC) Count 3.82 10x6/uL (4.32-5.72); White Blood Cell (WBC) Count 5.4 10x3/uL (3.5-10.5)
[2021-10-31 11:44] LABS: INR-International Normal Ratio 1.1; PTT 28.3 sec (22.0-33.0); Prothrombin Time 12.4 sec (9.5-12.1)
== END 2021-10-31 12:40 | disposition home or self-care (01) ==
LOC: CSHULT 10:23
PROVIDERS: ATTEND Physician Assistant Medical
DX: R18.8 Other ascites (principal); K74.60 Unspecified cirrhosis of liver; K72.90 Hepatic failure, unspecified without coma
CPT/HCPCS: 49083; 85025; 85610; 85730; P9047

== ENCOUNTER 2021-11-15 12:01 | Day surgery (SDC) | payer MEDICARE ==
[2021-11-15] MEDS ORDERED: Albumin 25% 200 ML ONE (12:26)
[2021-11-15] MEDS ORDERED: Lidocaine 1% PF 5 ML VIAL ONE (12:55)
[2021-11-15 14:14] VITALS: BP 123/71; TEMP 97.8
== END 2021-11-15 14:00 | disposition home or self-care (01) ==
LOC: CSHULT 12:01
PROVIDERS: ATTEND Physician Assistant Medical
DX: R18.8 Other ascites (principal)
CPT/HCPCS: 49083; P9047

== ENCOUNTER 2021-11-29 11:39 | Day surgery (SDC) | payer MEDICARE ==
[2021-11-29] MEDS ORDERED: Lidocaine 1% PF 5 ML VIAL ONE ×2 (12:01)
[2021-11-29] MEDS ORDERED: Sodium Bicarbonate 2.5 MEQ/5 ML VIAL ONE (12:02)
[2021-11-29] MEDS ORDERED: Albumin 25% 100 ML ONE ×2 (12:03)
[2021-11-29 12:18] VITALS: BP 152/66; TEMP 98.1
[2021-11-29] MEDS ORDERED: FLU VACC QS2021-22(65YR UP)/PF 240 MCG/0.7 ML SYRINGE IM ONE (12:30)
[2021-11-29 13:26] LABS: #Basophils 0.1 10x3/uL (0.0-0.2); #Eosinphils 0.2 10x3/uL (0.0-0.5); #Monocytes 0.7 10x3/uL (0.0-1.1); #Neutrophils 3.9 10x3/uL (1.5-8.4); %Basophils 0.8 % (0.0-2.0); %Eosinophils 2.4 % (0.0-6.0); %Lymphocytes 24.7 % (18.0-47.0); %Monocytes 10.6 % (0.0-10.0); Hemoglobin 12.1 g/dL (13.5-17.5); Mean Corpuscular HGB CONC 32.4 g/dL (32.0-36.0); Mean Corpuscular Hemoglobin 30.9 pg (27.0-33.0); Mean Corpuscular Volume 95.4 fl (81.2-95.1); Mean Platelet Volume 10.2 fl (7.4-10.4); Platelet Count 168 10x3/uL (150-450); RBC Distribution Width 14.7 % (11.5-14.5); Red Blood Cell (RBC) Count 3.91 10x6/uL (4.32-5.72); White Blood Cell (WBC) Count 6.4 10x3/uL (3.5-10.5)
[2021-11-29 13:52] LABS: INR-International Normal Ratio 1.1; Prothrombin Time 12.1 sec (9.5-12.1)
== END 2021-11-29 13:05 | disposition home or self-care (01) ==
LOC: CSHULT 11:39
PROVIDERS: ATTEND Physician Assistant Medical
DX: R18.8 Other ascites (principal)
CPT/HCPCS: 49083; 85025; 85610; 85730; P9047

== ENCOUNTER → 2021-12-13 | Day surgery (SDC) | payer MEDICARE ==
[~2021-12-13] MED LIST changes: +Albumin 25% 100 ML ONE
[2021-12-13 12:01] VITALS: TEMP 98.2
== END ==
LOC: CSHULT 10:26
PROVIDERS: ATTEND Physician Assistant Medical
DX: R18.8 Other ascites (principal); K74.60 Unspecified cirrhosis of liver; K72.90 Hepatic failure, unspecified without coma
CPT/HCPCS: 49083; P9047

== ENCOUNTER 2021-12-27 12:15 | Day surgery (SDC) | payer MEDICARE ==
[2021-12-27] MEDS ORDERED: Albumin 25% 200 ML ONE (12:30)
[2021-12-27] MEDS ORDERED: FLU VACC QS2021-22(65YR UP)/PF 240 MCG/0.7 ML SYRINGE IM ONE (12:45)
[2021-12-27] MEDS ORDERED: Sodium Bicarbonate 2.5 MEQ/5 ML VIAL ONE (13:03)
[2021-12-27] MEDS ORDERED: Lidocaine 1% PF 5 ML VIAL ONE ×2 (13:04)
[2021-12-27 14:13] VITALS: BP 155/72; TEMP 98.8
== END 2021-12-27 14:03 | disposition home or self-care (01) ==
LOC: CSHULT 12:15
PROVIDERS: ATTEND Physician Assistant Medical
DX: R18.8 Other ascites (principal)
CPT/HCPCS: 49083; P9047

== ENCOUNTER → 2022-01-10 | Day surgery (SDC) | payer MEDICARE ==
[~2022-01-10] MED LIST changes: -Albumin 25% 100 ML ONE; -Lidocaine 1% PF 5 ML VIAL ONE
[2022-01-10 12:48] LABS: #Basophils 0.1 10x3/uL (0.0-0.2); #Eosinphils 0.2 10x3/uL (0.0-0.5); #Monocytes 0.6 10x3/uL (0.0-1.1); %Basophils 0.8 % (0.0-2.0); %Eosinophils 2.6 % (0.0-6.0); %Lymphocytes 21.8 % (18.0-47.0); %Monocytes 10.2 % (0.0-10.0); %Neutrophils 64.3 % (40.0-75.0); Hemoglobin 12.6 g/dL (13.5-17.5); Mean Corpuscular HGB CONC 32.7 g/dL (32.0-36.0); Mean Corpuscular Volume 91.7 fl (81.2-95.1); Mean Platelet Volume 10.1 fl (7.4-10.4); Platelet Count 165 10x3/uL (150-450); RBC Distribution Width 14.3 % (11.5-14.5); White Blood Cell (WBC) Count 6.2 10x3/uL (3.5-10.5)
[2022-01-10 13:08] LABS: INR-International Normal Ratio 1.1; PTT 29.1 sec (22.0-33.0); Prothrombin Time 11.9 sec (9.5-12.1)
[2022-01-10 13:11] LABS: ALT (SGPT) 25 U/L (8-55); AST (SGOT) 48 U/L (5-34); Alkaline Phosphatase 122 U/L (40-110); Anion Gap 12 mmol/L (10-20); BUN (Urea Nitrogen) 32 mg/dL (8.4-25.7); Bilirubin, Total 0.9 mg/dL (0.2-1.2); Calc. Creatinine Clearance 62 mL/min (70-130); Calcium 9.2 mg/dL (7.8-10.44); Carbon Dioxide 20 mmol/L (23-31); Chloride 111 mmol/L (98-107); Globulin 3.7 g/dL (2.4-3.5); Glucose 95 mg/dL (83-110); Potassium 4.9 mmol/L (3.5-5.1); Protein, Total 6.7 g/dL (5.8-8.1); Sodium 138 mmol/L (136-145)
[2022-01-10 14:26] LABS: BF Color Yellow; Body Fluid Source Paracentesis Fluid; Clarity Hazy (Clear); Tube # EDTA
[2022-01-10 15:10] LABS: BF Segmented Neutrophils 4 %; Cell Count Non Hematic 37 %; Lymphocytes 59 %
== END ==
LOC: CSHULT 11:34
PROVIDERS: ATTEND Physician Assistant Medical
DX: R18.8 Other ascites (principal); K74.60 Unspecified cirrhosis of liver; K72.90 Hepatic failure, unspecified without coma
CPT/HCPCS: 49083; 80053; 82042; 85025; 85610; 85730; 89051; P9047

== ENCOUNTER 2022-03-07 11:21 | Day surgery (SDC) | payer MEDICARE ==
[2022-03-07] MEDS ORDERED: Lidocaine 1% PF 5 ML VIAL ONE (12:08)
[2022-03-07] MEDS ORDERED: Albumin 25% 100 ML ONE (12:08)
[2022-03-07 12:19] VITALS: BP 140/68
== END 2022-03-07 13:15 | disposition home or self-care (01) ==
LOC: CSHULT 11:21
PROVIDERS: ATTEND Physician Assistant Medical
DX: R18.8 Other ascites (principal); K74.60 Unspecified cirrhosis of liver; K72.90 Hepatic failure, unspecified without coma
CPT/HCPCS: 49083; P9047

== ENCOUNTER → 2022-03-21 | Day surgery (SDC) | payer MEDICARE ==
[~2022-03-21] MED LIST changes: +Albumin 25% 100 ML ONE; +Lidocaine 1% PF 5 ML VIAL ONE
[2022-03-21 11:48] LABS: BF Color Yellow; Body Fluid Source Paracentesis Fluid; Clarity Hazy (Clear); Tube # EDTA
[2022-03-21 12:21] LABS: BF Segmented Neutrophils 5 %; Cell Count Non Hematic 45 %; Lymphocytes 50 %
== END ==
LOC: CSHULT 09:16
PROVIDERS: ATTEND Physician Assistant Medical
DX: R18.8 Other ascites (principal)
CPT/HCPCS: 49083; 87070; 87205; 89051; P9047

== ENCOUNTER → 2022-04-04 | Day surgery (SDC) | payer MEDICARE ==
[~2022-04-04] MED LIST changes: -Albumin 25% 100 ML ONE; +Albumin 25% 200 ML ONE
[2022-04-04 09:58] LABS: Mean Corpuscular HGB CONC 33.3 g/dL (32.0-36.0); Mean Corpuscular Hemoglobin 30.2 pg (27.0-33.0); Mean Corpuscular Volume 90.7 fl (81.2-95.1); Mean Platelet Volume 10.2 fl (7.4-10.4); Platelet Count 152 10x3/uL (150-450); RBC Distribution Width 15.6 % (11.5-14.5); Red Blood Cell (RBC) Count 3.64 10x6/uL (4.32-5.72); White Blood Cell (WBC) Count 6.9 10x3/uL (3.5-10.5)
[2022-04-04 10:08] LABS: INR-International Normal Ratio 1.1; Prothrombin Time 11.9 sec (9.5-12.1)
[2022-04-04 11:59] LABS: BF Color Yellow; Body Fluid Source Paracentesis Fluid; Clarity Hazy (Clear); Tube # EDTA
[2022-04-04 12:35] LABS: BF Segmented Neutrophils 2 %; Cell Count Non Hematic 23 %; Lymphocytes 75 %
== END ==
LOC: CSHULT 08:46
PROVIDERS: ATTEND Physician Assistant Medical
DX: K74.60 Unspecified cirrhosis of liver (principal); K72.90 Hepatic failure, unspecified without coma; K44.9 Diaphragmatic hernia without obstruction or gangrene; R53.83 Other fatigue; R60.9 Edema, unspecified
CPT/HCPCS: 49083; 85027; 85610; 87070; 87205; 89051; P9047

== ENCOUNTER 2022-04-18 08:49 | Day surgery (SDC) | payer MEDICARE ==
[2022-04-18] MEDS ORDERED: Albumin 25% 200 ML ONE (09:18)
[2022-04-18] MEDS ORDERED: Lidocaine 1% PF 5 ML VIAL ONE (09:18)
[2022-04-18] MEDS ORDERED: Sodium Bicarbonate 2.5 MEQ/5 ML VIAL ONE (09:19)
[2022-04-18 11:55] VITALS: TEMP 98.6
[2022-04-18 12:22] LABS: BF Color Yellow; Body Fluid Source Ascites Body Fluid; Clarity Hazy (Clear); Tube # EDTA
[2022-04-18 12:58] LABS: Cell Count Non Hematic 40 %; Lymphocytes 60 %
[2022-04-18 13:14] LABS: BF Segmented Neutrophils 0 %
== END 2022-04-18 10:38 | disposition home or self-care (01) ==
LOC: CSHULT 08:49
PROVIDERS: ATTEND Internal Medicine Gastroenterology
PROC: 0W9G3ZX Drainage of Peritoneal Cavity, Percutaneous Approach, Diagnostic (ICD-10-PCS; principal; 2022-04-18)
DX: K74.60 Unspecified cirrhosis of liver (principal); R18.8 Other ascites; Z79.899 Other long term (current) drug therapy; Z91.041 Radiographic dye allergy status
CPT/HCPCS: 49083; 87070; 87205; 89051; P9047

== ENCOUNTER 2022-05-02 08:59 | Day surgery (SDC) | payer MEDICARE ==
[2022-05-01 12:27] VITALS: BMI 38.0
[2022-05-02 09:56] LABS: #Eosinphils 0.1 10x3/uL (0.0-0.5); #Monocytes 0.9 10x3/uL (0.0-1.1); #Neutrophils 5.5 10x3/uL (1.5-8.4); %Basophils 0.4 % (0.0-2.0); %Eosinophils 1.8 % (0.0-6.0); %Lymphocytes 15.7 % (18.0-47.0); %Monocytes 10.9 % (0.0-10.0); %Neutrophils 70.8 % (40.0-75.0); Hemoglobin 11.5 g/dL (13.5-17.5); Mean Corpuscular HGB CONC 33.4 g/dL (32.0-36.0); Mean Corpuscular Hemoglobin 30.3 pg (27.0-33.0); Mean Corpuscular Volume 90.8 fl (81.2-95.1); Mean Platelet Volume 10.6 fl (7.4-10.4); Platelet Count 153 10x3/uL (150-450); Red Blood Cell (RBC) Count 3.79 10x6/uL (4.32-5.72); White Blood Cell (WBC) Count 7.8 10x3/uL (3.5-10.5)
[2022-05-02] MEDS ORDERED: Lidocaine 1% PF 5 ML VIAL ONE (09:56)
[2022-05-02] MEDS ORDERED: Albumin 25% 200 ML ONE (09:56)
[2022-05-02] MEDS ORDERED: Sodium Bicarbonate 2.5 MEQ/5 ML VIAL ONE (09:57)
[2022-05-02 10:13] LABS: ALT (SGPT) 30 U/L (8-55); AST (SGOT) 45 U/L (5-34); Albumin 3.1 g/dL (3.4-4.8); Alkaline Phosphatase 134 U/L (40-110); Anion Gap 12 mmol/L (10-20); BUN (Urea Nitrogen) 38 mg/dL (8.4-25.7); Bilirubin, Total 1.1 mg/dL (0.2-1.2); Calc. Creatinine Clearance 53 mL/min (70-130); Calcium 9.1 mg/dL (7.8-10.44); Carbon Dioxide 20 mmol/L (23-31); Chloride 109 mmol/L (98-107); Globulin 2.8 g/dL (2.4-3.5); Glucose 98 mg/dL (83-110); Potassium 5.3 mmol/L (3.5-5.1); Protein, Total 5.9 g/dL (5.8-8.1); Sodium 136 mmol/L (136-145)
[2022-05-02 11:33] LABS: BF Color Yellow; Body Fluid Source Ascites Body Fluid; Clarity Hazy (Clear); Tube # EDTA
[2022-05-02 11:49] VITALS: BP 137/63; TEMP 98.2
[2022-05-02 12:17] LABS: BF Segmented Neutrophils 2 %; Cell Count Non Hematic 24 %; Lymphocytes 74 %
== END 2022-05-02 10:58 | disposition home or self-care (01) ==
LOC: CSHULT 08:59
PROVIDERS: ATTEND Physician Assistant Medical
PROC: 0W9G3ZZ Drainage of Peritoneal Cavity, Percutaneous Approach (ICD-10-PCS; principal; 2022-05-02)
DX: K74.60 Unspecified cirrhosis of liver (principal); R18.8 Other ascites; K72.90 Hepatic failure, unspecified without coma; K44.9 Diaphragmatic hernia without obstruction or gangrene; Z88.8 Allergy status to other drugs, medicaments and biological substances; Z91.041 Radiographic dye allergy status
CPT/HCPCS: 49083; 80053; 82105; 85025; 87070; 87205; 89051; P9047

== ENCOUNTER 2022-05-16 08:45 | Day surgery (SDC) | payer MEDICARE ==
[2022-05-16] MEDS ORDERED: Albumin 25% 200 ML ONE (09:26)
[2022-05-16] MEDS ORDERED: Lidocaine 1% PF 5 ML VIAL ONE (09:27)
[2022-05-16] MEDS ORDERED: Sodium Bicarbonate 2.5 MEQ/5 ML VIAL ONE (09:27)
[2022-05-16 09:56] LABS: Hemoglobin 11.6 g/dL (13.5-17.5); Mean Corpuscular HGB CONC 33.9 g/dL (32.0-36.0); Mean Corpuscular Hemoglobin 30.3 pg (27.0-33.0); Mean Corpuscular Volume 89.3 fl (81.2-95.1); Mean Platelet Volume 9.9 fl (7.4-10.4); Platelet Count 166 10x3/uL (150-450); RBC Distribution Width 14.8 % (11.5-14.5); Red Blood Cell (RBC) Count 3.83 10x6/uL (4.32-5.72)
[2022-05-16 10:09] LABS: INR-International Normal Ratio 1.1; PTT 29.1 sec (22.0-33.0); Prothrombin Time 11.9 sec (9.5-12.1)
[2022-05-16 12:28] VITALS: BP 128/60; TEMP 97.9
== END 2022-05-16 11:07 | disposition home or self-care (01) ==
LOC: CSHULT 08:45
PROVIDERS: ATTEND Physician Assistant Medical
PROC: 0W9G30Z Drainage of Peritoneal Cavity with Drainage Device, Percutaneous Approach (ICD-10-PCS; principal; 2022-05-16)
DX: R18.8 Other ascites (principal)
CPT/HCPCS: 49083; 85027; 85610; 85730; P9047

== ENCOUNTER 2022-05-30 08:39 | Day surgery (SDC) | payer MEDICARE ==
[2022-05-30] MEDS ORDERED: Lidocaine 1% PF 5 ML VIAL ONE (09:03)
[2022-05-30] MEDS ORDERED: Albumin 25% 200 ML ONE (09:03)
[2022-05-30] MEDS ORDERED: Sodium Bicarbonate 2.5 MEQ/5 ML VIAL ONE (09:04)
[2022-05-30 09:29] VITALS: BP 131/61; TEMP 97.8
[2022-05-30 11:49] LABS: BF Color Yellow; Body Fluid Source Paracentesis Fluid; Clarity Hazy (Clear); Tube # EDTA
[2022-05-30 12:59] LABS: BF Segmented Neutrophils 2 %; Cell Count Non Hematic 18 %; Lymphocytes 80 %
== END 2022-05-30 11:10 | disposition home or self-care (01) ==
LOC: CSHULT 08:39
PROVIDERS: ATTEND Physician Assistant Medical
PROC: 0W9G3ZZ Drainage of Peritoneal Cavity, Percutaneous Approach (ICD-10-PCS; principal; 2022-05-30)
DX: R18.8 Other ascites (principal)
CPT/HCPCS: 49083; 87070; 87205; 89051; P9047

== ENCOUNTER 2022-06-13 08:54 | Day surgery (SDC) | payer MEDICARE ==
[2022-06-13] MEDS ORDERED: Albumin 25% 200 ML ONE (09:48)
[2022-06-13] MEDS ORDERED: Sodium Bicarbonate 2.5 MEQ/5 ML VIAL ONE (09:48)
[2022-06-13] MEDS ORDERED: Lidocaine 1% PF 5 ML VIAL ONE (09:48)
[2022-06-13 09:57] LABS: Anion Gap 13 mmol/L (10-20); BUN (Urea Nitrogen) 38 mg/dL (8.4-25.7); Calc. Creatinine Clearance 53 mL/min (70-130); Calcium 8.9 mg/dL (7.8-10.44); Carbon Dioxide 19 mmol/L (23-31); Chloride 110 mmol/L (98-107); Estimated GFR 37; Glucose 92 mg/dL (83-110); Potassium 5.7 mmol/L (3.5-5.1); Sodium 136 mmol/L (136-145)
[2022-06-13 12:27] LABS: BF Color Yellow; Body Fluid Source Ascites Body Fluid; Clarity Cloudy/Turbid (Clear); Tube # EDTA
[2022-06-13 14:42] LABS: BF Segmented Neutrophils 3 %; Cell Count Non Hematic 11 %; Lymphocytes 86 %
== END 2022-06-13 11:15 | disposition home or self-care (01) ==
LOC: CSHULT 08:54
PROVIDERS: ATTEND Physician Assistant Medical
DX: R18.8 Other ascites (principal); K74.60 Unspecified cirrhosis of liver; Z88.8 Allergy status to other drugs, medicaments and biological substances
CPT/HCPCS: 49083; 80048; 87070; 87205; 89051; P9047

== ENCOUNTER 2022-06-27 08:58 | Day surgery (SDC) | payer MEDICARE ==
[2022-06-27] MEDS ORDERED: Albumin 25% 200 ML ONE (09:16)
[2022-06-27] MEDS ORDERED: Lidocaine 1% PF 5 ML VIAL ONE (09:16)
[2022-06-27] MEDS ORDERED: Sodium Bicarbonate 2.5 MEQ/5 ML VIAL ONE (09:16)
[2022-06-27 09:23] VITALS: BP 136/63; TEMP 98.2
[2022-06-27 09:46] LABS: Prothrombin Time 11.2 sec (9.5-12.1)
[2022-06-27 12:18] LABS: BF Color Yellow; Body Fluid Source Paracentesis Fluid; Clarity Cloudy/Turbid (Clear); Tube # EDTA
[2022-06-27 13:19] LABS: BF Segmented Neutrophils 5 %; Cell Count Non Hematic 47 %; Lymphocytes 48 %
== END 2022-06-27 10:45 | disposition home or self-care (01) ==
LOC: CSHULT 08:58
PROVIDERS: ATTEND Physician Assistant Medical
PROC: 0W9G3ZZ Drainage of Peritoneal Cavity, Percutaneous Approach (ICD-10-PCS; principal; 2022-06-27)
DX: R18.8 Other ascites (principal)
CPT/HCPCS: 49083; 85610; 87070; 87205; 89051; P9047

== ENCOUNTER 2022-07-11 09:31 | Day surgery (SDC) | payer MEDICARE ==
[2022-07-11] MEDS ORDERED: Albumin 25% 200 ML ONE (09:49)
[2022-07-11] MEDS ORDERED: Sodium Bicarbonate 2.5 MEQ/5 ML VIAL ONE (09:50)
[2022-07-11] MEDS ORDERED: Lidocaine 1% PF 5 ML VIAL ONE (09:50)
[2022-07-11 10:13] VITALS: BP 135/64; TEMP 98
[2022-07-11 10:25] LABS: INR-International Normal Ratio 1.1; Prothrombin Time 11.6 sec (9.5-12.1)
[2022-07-11 11:38] LABS: Body Fluid Source Ascites Body Fluid
[2022-07-11 11:39] LABS: BF Color Yellow; Clarity Hazy (Clear); Tube # EDTA
[2022-07-11 12:20] LABS: Lymphocytes 72 %
[2022-07-11 12:21] LABS: BF Segmented Neutrophils 4 %; Cell Count Non Hematic 24 %
== END 2022-07-11 11:15 | disposition home or self-care (01) ==
LOC: CSHULT 09:31
PROVIDERS: ATTEND Physician Assistant Medical
PROC: 0W9G3ZZ Drainage of Peritoneal Cavity, Percutaneous Approach (ICD-10-PCS; principal; 2022-07-11)
DX: R18.8 Other ascites (principal)
CPT/HCPCS: 49083; 85610; 87070; 87205; 89051; P9047

== ENCOUNTER 2022-07-25 09:06 | Day surgery (SDC) | payer MEDICARE ==
[2022-07-25] MEDS ORDERED: Albumin 25% 100 ML ONE ×2 (09:40→09:59)
[2022-07-25] MEDS ORDERED: Lidocaine 1% PF 5 ML VIAL ONE (09:40)
[2022-07-25] MEDS ORDERED: Sodium Bicarbonate 2.5 MEQ/5 ML VIAL ONE (09:41)
[2022-07-25 09:46] VITALS: BP 142/63; TEMP 97.4
[2022-07-25 10:15] LABS: #Eosinphils 0.2 10x3/uL (0.0-0.5); #Monocytes 0.9 10x3/uL (0.0-1.1); #Neutrophils 4.8 10x3/uL (1.5-8.4); %Basophils 0.5 % (0.0-2.0); %Eosinophils 2.9 % (0.0-6.0); %Lymphocytes 20.5 % (18.0-47.0); %Monocytes 11.4 % (0.0-10.0); %Neutrophils 64.3 % (40.0-75.0); Hemoglobin 11.1 g/dL (13.5-17.5); Mean Corpuscular HGB CONC 34.4 g/dL (32.0-36.0); Mean Corpuscular Hemoglobin 30.2 pg (27.0-33.0); Mean Platelet Volume 10.2 fl (7.4-10.4); Platelet Count 164 10x3/uL (150-450); RBC Distribution Width 14.7 % (11.5-14.5); Red Blood Cell (RBC) Count 3.67 10x6/uL (4.32-5.72); White Blood Cell (WBC) Count 7.5 10x3/uL (3.5-10.5)
[2022-07-25 10:21] LABS: INR-International Normal Ratio 1.1; Prothrombin Time 11.9 sec (9.5-12.1)
[2022-07-25 11:25] LABS: Body Fluid Source Ascites Body Fluid; Clarity Hazy (Clear); Tube # EDTA
[2022-07-25 11:26] LABS: BF Color Yellow
[2022-07-25 12:24] LABS: BF Segmented Neutrophils 4 %; Cell Count Non Hematic 34 %; Lymphocytes 62 %
== END 2022-07-25 11:10 | disposition home or self-care (01) ==
LOC: CSHULT 09:06
PROVIDERS: ATTEND Physician Assistant Medical
PROC: 0W9G3ZZ Drainage of Peritoneal Cavity, Percutaneous Approach (ICD-10-PCS; principal; 2022-07-25)
DX: R18.8 Other ascites (principal); K74.60 Unspecified cirrhosis of liver; K72.90 Hepatic failure, unspecified without coma; D12.6 Benign neoplasm of colon, unspecified; K44.9 Diaphragmatic hernia without obstruction or gangrene
CPT/HCPCS: 49083; 76705; 85025; 85610; 87070; 87205; 89051; P9047

== ENCOUNTER 2022-08-22 08:55 | Emergency (ER) | payer MEDICARE ==
[2022-08-22] MEDS ORDERED: Lidocaine 1% PF 5 ML VIAL ONE (09:44)
[2022-08-22] MEDS ORDERED: Albumin 25% 200 ML ONE (09:44)
[2022-08-22] MEDS ORDERED: Sodium Bicarbonate 2.5 MEQ/5 ML VIAL ONE (09:45)
[2022-08-22 10:10] LABS: #Basophils 0.1 10x3/uL (0.0-0.2); #Eosinphils 0.2 10x3/uL (0.0-0.5); #Monocytes 1.1 10x3/uL (0.0-1.1); #Neutrophils 4.9 10x3/uL (1.5-8.4); %Basophils 0.6 % (0.0-2.0); %Eosinophils 2.2 % (0.0-6.0); %Lymphocytes 19.5 % (18.0-47.0); %Monocytes 14.4 % (0.0-10.0); %Neutrophils 62.8 % (40.0-75.0); Hemoglobin 11.3 g/dL (13.5-17.5); Mean Corpuscular HGB CONC 32.3 g/dL (32.0-36.0); Mean Corpuscular Hemoglobin 29.9 pg (27.0-33.0); Mean Corpuscular Volume 92.6 fl (81.2-95.1); Mean Platelet Volume 10.2 fl (7.4-10.4); Platelet Count 135 10x3/uL (150-450); RBC Distribution Width 15.1 % (11.5-14.5); Red Blood Cell (RBC) Count 3.78 10x6/uL (4.32-5.72); White Blood Cell (WBC) Count 7.8 10x3/uL (3.5-10.5)
[2022-08-22 11:51] LABS: BF Color Yellow; Body Fluid Source Ascites Body Fluid; Clarity Cloudy/Turbid (Clear); Tube # EDTA
[2022-08-22 12:14] LABS: BF Segmented Neutrophils 4 %; Cell Count Non Hematic 30 %; Lymphocytes 66 %
[2022-08-22 12:27] LABS: ALT (SGPT) 21 U/L (8-55); AST (SGOT) 39 U/L (5-34); Albumin 3.5 g/dL (3.4-4.8); Alkaline Phosphatase 103 U/L (40-110); Anion Gap 14 mmol/L (10-20); BUN (Urea Nitrogen) 50 mg/dL (8.4-25.7); Bilirubin, Total 1.4 mg/dL (0.2-1.2); Calc. Creatinine Clearance 0 mL/min (70-130); Calcium 9.1 mg/dL (7.8-10.44); Carbon Dioxide 18 mmol/L (23-31); Chloride 107 mmol/L (98-107); Estimated GFR 35; Globulin 2.1 g/dL (2.4-3.5); Glucose 105 mg/dL (83-110); Lipase 54 U/L (8-78); Potassium 4.2 mmol/L (3.5-5.1); Protein, Total 5.6 g/dL (5.8-8.1); Sodium 135 mmol/L (136-145)
[2022-08-22 12:45] LABS: Bilirubin Neg (Negative); Blood, Urine Negative (Negative); Clarity Clear (Clear); Glucose, Urine (Dipstick) Normal (Negative); Ketone, Urine Negative (Negative); Leukocyte Negative (Negative); Nitrite Negative (Negative); Protein, Urine (Dipstick) Negative (Neg-Trace); Urobilinogen Normal mg/dL (Less than 2)
== END 2022-08-22 13:24 | disposition home or self-care (01) ==
LOC: CSHERS 08:55
DX: R18.8 Other ascites (principal); R41.82 Altered mental status, unspecified; E78.00 Pure hypercholesterolemia, unspecified; I10 Essential (primary) hypertension; K21.9 Gastro-esophageal reflux disease without esophagitis
CPT/HCPCS: 49083; 71045; 80053; 81003; 82140; 83690; 85025; 87070; 87205; 89051; 93005; 99285; P9047; 36415

== ENCOUNTER 2022-09-05 08:47 | Day surgery (SDC) | payer MEDICARE ==
[2022-09-05] MEDS ORDERED: Albumin 25% 200 ML ONE (09:20)
[2022-09-05] MEDS ORDERED: Sodium Bicarbonate 2.5 MEQ/5 ML VIAL ONE (09:21)
[2022-09-05 09:55] LABS: INR-International Normal Ratio 1.1; Prothrombin Time 11.8 sec (9.5-12.1)
[2022-09-05 10:43] VITALS: BP 139/63; TEMP 97.6
[2022-09-05 12:36] LABS: BF Color Yellow; Body Fluid Source Ascites Body Fluid; Clarity Hazy (Clear); Tube # EDTA
[2022-09-05 13:53] LABS: BF Segmented Neutrophils 17 %; Cell Count Non Hematic 5 %; Lymphocytes 78 %
== END 2022-09-05 10:44 | disposition home or self-care (01) ==
LOC: CSHULT 08:47
PROVIDERS: ATTEND Physician Assistant Medical
PROC: 0W9G3ZZ Drainage of Peritoneal Cavity, Percutaneous Approach (ICD-10-PCS; principal; 2022-09-05)
DX: R18.8 Other ascites (principal)
CPT/HCPCS: 49083; 85610; 87070; 87205; 89051; P9047

== ENCOUNTER 2022-09-19 08:50 | Day surgery (SDC) | payer MEDICARE ==
[2022-09-19 09:18] VITALS: BP 143/63; TEMP 97.6
[2022-09-19 10:56] LABS: BF Color Yellow; Body Fluid Source Ascites Body Fluid; Clarity Hazy (Clear); Tube # EDTA
[2022-09-19 11:42] LABS: BF Segmented Neutrophils 3 %; Cell Count Non Hematic 17 %; Lymphocytes 80 %
== END 2022-09-19 10:53 | disposition home or self-care (01) ==
LOC: CSHULT 08:50
PROVIDERS: ATTEND Internal Medicine Gastroenterology
DX: R18.8 Other ascites (principal); Z91.041 Radiographic dye allergy status
CPT/HCPCS: 49083; 87070; 87205; 89051; P9047

== ENCOUNTER 2022-09-27 15:04 | Emergency (ER) | payer MEDICARE ==
[2022-09-27 15:51] LABS: #Eosinphils 0.3 10x3/uL (0.0-0.5); #Monocytes 0.6 10x3/uL (0.0-1.1); #Neutrophils 4.9 10x3/uL (1.5-8.4); %Basophils 0.6 % (0.0-2.0); %Eosinophils 4.9 % (0.0-6.0); %Lymphocytes 14.1 % (18.0-47.0); %Monocytes 9.1 % (0.0-10.0); %Neutrophils 70.9 % (40.0-75.0); Hemoglobin 11.1 g/dL (13.5-17.5); Mean Corpuscular HGB CONC 34.7 g/dL (32.0-36.0); Mean Corpuscular Volume 89.4 fl (81.2-95.1); Platelet Count 153 10x3/uL (150-450); RBC Distribution Width 15.2 % (11.5-14.5); Red Blood Cell (RBC) Count 3.58 10x6/uL (4.32-5.72)
[2022-09-27 16:03] LABS: ALT (SGPT) 31 U/L (8-55); AST (SGOT) 45 U/L (5-34); Albumin 3.2 g/dL (3.4-4.8); Alkaline Phosphatase 96 U/L (40-110); Anion Gap 14 mmol/L (10-20); BUN (Urea Nitrogen) 42 mg/dL (8.4-25.7); Bilirubin, Total 1.5 mg/dL (0.2-1.2); Calc. Creatinine Clearance 0 mL/min (70-130); Calcium 9.5 mg/dL (7.8-10.44); Carbon Dioxide 19 mmol/L (23-31); Chloride 110 mmol/L (98-107); Estimated GFR 39; Globulin 2.1 g/dL (2.4-3.5); Glucose 125 mg/dL (83-110); Lipase 55 U/L (8-78); Potassium 3.8 mmol/L (3.5-5.1); Protein, Total 5.3 g/dL (5.8-8.1); Sodium 139 mmol/L (136-145)
[2022-09-27 16:33] LABS: Bilirubin Neg (Negative); Blood, Urine 10 (Negative); Clarity Clear (Clear); Glucose, Urine (Dipstick) Normal (Negative); Ketone, Urine Negative (Negative); Leukocyte Negative (Negative); Nitrite Negative (Negative); Protein, Urine (Dipstick) Negative (Neg-Trace); Urobilinogen Normal mg/dL (Less than 2)
[2022-09-27 16:51] LABS: Bacteria/HPF None Seen HPF (None Seen); Squamous Epithelial None Seen HPF (0-3); WBC/HPF None Seen HPF (0-3)
[2022-09-27 19:37] LABS: SARS-CoV-2 NAA Rapid Test Not Detected (NotDetected)
== END 2022-09-27 21:10 | disposition home or self-care (01) ==
LOC: CSHERS 15:04
DX: R53.1 Weakness (principal); R41.0 Disorientation, unspecified; E78.00 Pure hypercholesterolemia, unspecified; I10 Essential (primary) hypertension; E78.5 Hyperlipidemia, unspecified; Z20.822 Contact with and (suspected) exposure to COVID-19
CPT/HCPCS: 0240U; 51701; 70450; 71045; 80053; 82140; 82962; 83605; 83690; 83880; 85025; 87040; 93005; 99285; 36415; 36416; 81003; 81015

== ENCOUNTER → 2022-10-02 | Day surgery (SDC) | payer MEDICARE ==
[2022-10-02 13:06] LABS: BF Color Yellow; Body Fluid Source Ascites Body Fluid; Clarity Cloudy/Turbid (Clear); Tube # EDTA
[2022-10-02 13:31] LABS: BF Segmented Neutrophils 2 %; Cell Count Non Hematic 27 %; Lymphocytes 71 %
== END ==
LOC: CSHULT 09:19
PROVIDERS: ATTEND Internal Medicine Gastroenterology
DX: R18.8 Other ascites (principal); K74.60 Unspecified cirrhosis of liver
CPT/HCPCS: 49083; 87070; 87205; 89051; P9047